=== PATIENT | female | born 1980 | race Asian ===

== ENCOUNTER 2023-02-24 10:29 | Outpatient (REF) | payer MEDICAID, SELFPAY ==
[2023-02-24 12:12] LABS: Hemoglobin 11.3 g/dl (12.0-16.0); Mean Corpuscular HGB Conc 32.3 g/dl (31.0-35.0); Mean Corpuscular Volume 86.6 fL (80.0-98.0); Mean Platelet Volume 11.1 fL (9.4-12.3); Platelet Count 369 X10*3/uL (160-400); Red Blood Count 4.04 X10*6/uL (4.20-5.50); Red Cell Distribution Width 14.2 % (11.0-16.0); White Blood Count 7.6 X10*3/uL (4.8-10.8)
[2023-02-24 12:41] LABS: Alanine Aminotransferase 13 U/L (0-31); Albumin Level 3.9 g/dL (3.5-5.0); Alkaline Phosphatase 61 U/L (39-117); Anion Gap 11 (12-20); Aspartate Amino Transferase 14 U/L (5-31); Bilirubin Total 0.7 mg/dL (0.0-1.0); Blood Urea Nitrogen 12 mg/dL (9-16); C Reactive Protein 0.16 mg/dL (< or = 0.50); Calcium 8.6 mg/dL (8.4-10.2); Carbon Dioxide 26 mmol/L (22-29); Chloride 108 mmol/L (96-108); Estimated Glomerular Filt Rate > 60; Glucose Random 100 mg/dL (60-115); Potassium 4.6 mmol/L (3.3-5.1); Sodium 140 mmol/L (135-145)
[2023-02-25 15:38] LABS: Immunoglobulin A 362 mg/dL (47-310)
[2023-02-25 17:14] LABS: Transglutaminase IgA <1.0 U/mL
[2023-02-26 04:38] LABS: HBS Num1 1.38 mIU/mL (0-7.99); HBsAGNum1 0.33 S/CO (0.00-0.99); Hepatitis B Core Antibody Nonreactive (Nonreactive); Hepatitis B Surface Antigen Negative (Negative); ~HepC Num1 0.14 S/CO (0.00-0.79); ~Hepatitis B Surface Antibody NONREACTIVE (Nonreactive); ~Hepatitis C Antibody Nonreactive (Nonreactive)
== END 2023-02-24 10:30 | disposition home or self-care (01) ==
LOC: HO.LAB 10:29
PROVIDERS: PCP Internal Medicine; Visit Provider Internal Medicine
DX: R10.9 Unspecified abdominal pain (principal); R14.0 Abdominal distension (gaseous); K21.9 Gastro-esophageal reflux disease without esophagitis
CPT/HCPCS: 36415; 80053; 82784; 85027; 86140; 86364; 86704; 86706; 86803; 87340; 99202

== ENCOUNTER 2023-02-26 15:49 | Outpatient (REF) | payer MEDICAID, SELFPAY | END 2023-02-26 15:50 | disposition home or self-care (01) | LOC: HO.LNP 15:49 | PROVIDERS: Visit Provider Internal Medicine | DX: R14.0 Abdominal distension (gaseous) (principal) | CPT/HCPCS: 87338 ==

== ENCOUNTER 2023-03-07 12:49 | Outpatient (REF) | payer MEDICAID, SELFPAY ==
--- NOTE | ~2023-03-07 | US_ITS ---
EXAMINATION: US ABDOMEN COMPLETE CLINICAL INFORMATION: Unspecified abdominal pain. COMPARISON: Ultrasound abdomen complete 04/17/2020. TECHNIQUE: Real-time imaging of the abdominal viscera. FINDINGS: PANCREAS: The head and body appear normal. The tail is obscured by bowel gas. ABDOMINAL AORTA: The proximal, mid, and distal segments are normal in caliber. INFERIOR VENA CAVA: Visualized portions are normal. LIVER: Normal. The liver is normal in size. The liver contour is normal. Parenchymal echogenicity is normal. No focal hepatic lesion. There is no intrahepatic biliary duct dilatation seen. GALLBLADDER: Normal. The gallbladder is physiologically distended without evidence of stones, sludge, polyps, wall thickening or pericholecystic fluid. COMMON BILE DUCT: Normal in caliber measuring 0.3 cm in diameter. RIGHT KIDNEY: Normal. No hydronephrosis. No renal calculi or focal parenchymal lesions. The kidney measures 10.8 cm in maximum dimension. LEFT KIDNEY: Normal. No hydronephrosis. No renal calculi or focal parenchymal lesions. The kidney measures 10.0 cm in maximum dimension. SPLEEN: Normal. The spleen measures 9.7 cm in maximum dimension. FREE FLUID: None. US/US abdomen complete IMPRESSION: Normal abdominal ultrasound.
== END 2023-03-07 12:50 | disposition home or self-care (01) ==
LOC: HO.US 12:49
PROVIDERS: Visit Provider Internal Medicine
DX: R10.9 Unspecified abdominal pain (principal)
CPT/HCPCS: 76700

== ENCOUNTER 2023-04-28 11:08 | Outpatient (AMB) | payer MEDICAID, SELFPAY ==
--- NOTE | 2023-04-28 11:12 | A.OFFVIS_ITS ---
Intake Vital Signs 04/28/23 11:14 Height 5 ft 6 in Weight 143 lb 4.807 oz BMI 23.1 BP 109/76 Blood Pressure Location Lt brachial Position Sitting Pulse 88 Intake Visit Reasons: 2 mnth follow up Intake Note: Carmelo presents in the office as a 2 month follow up. CC: She states that she was taking Duloxetine and she states that she was feeling okay but she started feeling a pain in her upper chest region so she stopped taking it. She stopped Pepcid after 1 month - the first month everything was normal but things were very abnormal. Petroleum Refining Equipment Operator Required: Yes Petroleum Refining Equipment Operator Name: [id number] Allergies Seasonal Allergies Allergy (Mild, Verified 04/28/23 11:16) Unknown HPI HPI Comments History of Present Illness Details This is a 43y.o Tajik speaking female who is here for gastrointestinal issues as below. Reports abdominal bloating and frequent belching after heavy/fatty meals. Sometimes also with regurgitation but no forceful vomiting. Also reports frequent constipation. Has been ongoing for many years. Had previously been taking Famotidine and stool softener for these sx but did not notice much response. Has also tried dietary modifications such as avoiding sugary and fatty foods but felt that energy levels were not as great with this. Describes constipation as passing BMs 4-5 times a week with straining and the stool consistency is hard. Takes NSAIDs (meloxicam, naproxen PRN) for joint pains but does notice it makes the abd discomfort worse. 04/28/23: Seen with the help of an Tajik terminal supervisor. Reports not feeling well. Has similar sx of post prandial bloating and belching. [place] improvement with omeprazole PO in AM however when combined it with famotidine got severe chest pain so discontinued both. Cont to report significant epigastric discomfort and pressure. Additionally, also has constipation but does not report any distinct abd pain with this. Has 2 BMs per week with straining. Labs reviewed. H Pylori positive. [facility] Social History Household Members: Spouse and Family Alcohol intake: never Patient Tobacco Use Status: Never used Tobacco Review of Systems Const All systems reviewed & are unremarkable except as noted in HPI and below Physical Exam Vital Signs: Last Vital Signs Pulse 88 04/28/23 11:14 BP 109/76 04/28/23 11:14 BMI result Body Mass Index 23.1 Gen appear: NAD HEENT: nonicteric, no cervical lymphadenopathy Chest: CTA CVS: Regular S1/S2 Abd: soft, nontender, nondistended, bowel sounds + Ext: no peripheral edema Neuro: A/Ox3, noted to move all extremities spontaneously Psych: interacting appropriately Assessment & Plan Assessment & Plan (1) Bloating: Code(s): R14.0 - Abdominal distension (gaseous) (2) Abdominal pain: Code(s): R10.9 - Unspecified abdominal pain (3) H. pylori infection: Code(s): A04.8 - Other specified bacterial intestinal infections Plan Reviewed that sx most consistent with dyspepsia and first step would be H pylori eradication. Quad therapy will be prescribed. Pt was counseled extensively on how to take the meds and necessary precautions kaylynn with tetracycline was advised to use strict contraception while she is on this. - Start: Omeprazole 40mg BID Tetracycline 500mg 4 times a day (avoid sunburn while taking) Metronidazole 250mg 4 times a day? (avoid all alcohol while taking, can take with food to avoid nausea) Bismuth Subsalicylate 524mg 4 times a day (may turn stools black) - To be taken x 14 days total - Pt is aware to return for NELI in 2-3 weeks after completion of therapy i.e once shes off bismuth and PPIs. - Follow up in office after NELI Medications: New omeprazole 20 mg PO BID 14 days 28 caps 0RF metronidazole 250 mg PO QID 14 days 56 tabs 0RF bismuth subsalicylate 2 tabs PO QID 14 days 112 tabs 0RF tetracycline 500 mg PO QID 14 days 56 caps 0RF Coding Level of Care Code Est Pt Level 4 (83666) Diagnoses Bloating R14.0 Abdominal pain R10.9 H. pylori infection A04.8
[2023-04-28 11:14] VITALS: BP 109/76; PULSE 88; BMI 23.1
== END 2023-04-28 13:15 | disposition home or self-care (01) ==
PROVIDERS: Visit Provider Internal Medicine
DX: R14.0 Abdominal distension (gaseous) (principal); R10.9 Unspecified abdominal pain; A04.8 Other specified bacterial intestinal infections
CPT/HCPCS: 99214

== ENCOUNTER → 2023-04-28 11:08 | Outpatient (BNVA) | payer MEDICAID, SELFPAY | PROVIDERS: Visit Provider Internal Medicine | DX: R14.0 Abdominal distension (gaseous) (principal); R10.9 Unspecified abdominal pain; A04.8 Other specified bacterial intestinal infections | CPT/HCPCS: 99212 ==

== ENCOUNTER → 2023-07-01 12:28 | Outpatient (BNVA) | payer MEDICAID, SELFPAY | PROVIDERS: PCP Internal Medicine; Visit Provider Internal Medicine | DX: Z11.0 Encounter for screening for intestinal infectious diseases (principal) | CPT/HCPCS: 83013; 99211 ==

== ENCOUNTER 2023-07-01 17:54 | Outpatient (REF) | payer MEDICAID, SELFPAY ==
[2023-07-04 15:44] LABS: H Pylori Breath Test Positive (Negative)
== END 2023-07-01 17:55 | disposition home or self-care (01) ==
LOC: HO.LNP 17:54
PROVIDERS: Visit Provider Internal Medicine
DX: A04.8 Other specified bacterial intestinal infections (principal)
CPT/HCPCS: 83013

== ENCOUNTER 2023-07-07 15:10 | Outpatient (AMB) | payer OTHER, SELFPAY ==
--- NOTE | 2023-07-07 15:14 | MHC.OFFVIS ---
Intake Vital Signs 07/07/23 15:17 Height 5 ft 6 in Weight 145 lb 8.081 oz BMI 23.5 BP 107/72 Blood Pressure Location Lt brachial Position Sitting Pulse 87 Intake Visit Reasons: 10 week follow up Intake Note: Carmelo presents in the office as a 10 week follow up. CC: She is here as a follow up H Pylori Breath Test. No concerns today. Machine Burrer Required: Yes Machine Burrer Name: Yemi [id number] Allergies Seasonal Allergies Allergy (Mild, Verified 07/07/23 15:18) Unknown HPI HPI Comments History of Present Illness Details This is a 43y.o Portuguese speaking female who is here for gastrointestinal issues as below. Reports abdominal bloating and frequent belching after heavy/fatty meals. Sometimes also with regurgitation but no forceful vomiting. Also reports frequent constipation. Has been ongoing for many years. Had previously been taking Famotidine and stool softener for these sx but did not notice much response. Has also tried dietary modifications such as avoiding sugary and fatty foods but felt that energy levels were not as great with this. Describes constipation as passing BMs 4-5 times a week with straining and the stool consistency is hard. Takes NSAIDs (meloxicam, naproxen PRN) for joint pains but does notice it makes the abd discomfort worse. 04/28/23: Seen with the help of an [facility]. Reports not feeling well. Has similar sx of post prandial bloating and belching. [place] improvement with omeprazole PO in AM however when combined it with famotidine got severe chest pain so discontinued both. Cont to report significant epigastric discomfort and pressure. Additionally, also has constipation but does not report any distinct abd pain with this. Has 2 BMs per week with straining. Labs reviewed. H Pylori positive. 07/07/23: [facility]. Seen in follow up after H pylori quad therapy. Had a breath test done 07/01/23 which was still positive. Reports taking all 4 meds but does not recall taking any of the med 4 times a day. Reports that may be one of the med she took thrice a day. Did not bring pill boxes for review so unclear which meds were taken in which manner. [facility] Social History Household Members: Spouse and Family Alcohol intake: never Patient Tobacco Use Status: Never used Tobacco Review of Systems Const All systems reviewed & are unremarkable except as noted in HPI and below Physical Exam Vital Signs: Last Vital Signs Pulse 87 07/07/23 15:17 BP 107/72 07/07/23 15:17 BMI result Body Mass Index 23.5 Gen appear: NAD HEENT: nonicteric, no cervical lymphadenopathy Chest: CTA CVS: Regular S1/S2 Abd: soft, nontender, nondistended, bowel sounds + Ext: no peripheral edema Neuro: A/Ox3, noted to move all extremities spontaneously Psych: interacting appropriately Assessment & Plan Assessment & Plan (1) Bloating: Code(s): R14.0 - Abdominal distension (gaseous) (2) Abdominal pain: Code(s): R10.9 - Unspecified abdominal pain (3) H. pylori infection: Code(s): A04.8 - Other specified bacterial intestinal infections Plan Persistent H pylori infection most likely due to nonadherence to medications. Reinforced multiple times to the pt that she will need to take the quad therapy as prescribed for it to be effective. Willing to try this again but was advised that if fails a second time too, will need a different therapy (which has slightly lower eradication rate) since unable to Rx quad therapy a third time. Pt was counseled extensively on how to take the meds and necessary precautions kaylynn with tetracycline was advised to use strict contraception while she is on this. - Prescription sent again for : Omeprazole 40mg BID Tetracycline 500mg 4 times a day (avoid sunburn while taking) Metronidazole 250mg 4 times a day? (avoid all alcohol while taking, can take with food to avoid nausea) Bismuth Subsalicylate 524mg 4 times a day (may turn stools black) - To be taken x 14 days total - Instructions in [place] were also provided (pt's children will be able to interpret this for her) in a handout. - Pt is aware to return for NELI in 2-3 weeks after completion of therapy i.e once shes off bismuth and PPIs. Medications: New metronidazole 250 mg PO QID 14 days 56 tabs 0RF omeprazole 20 mg PO BID 14 days 28 caps 0RF bismuth subsalicylate 2 tabs PO QID 14 days 112 tabs 0RF tetracycline 500 mg PO QID 14 days 56 caps 0RF Patient Instructions: This is to review the results of testing and the instructions for medications again. As discussed, the testing showed presence of H.Pylori which is a bacteria that can cause irritation and changes in the lining of the stomach. In most patients, it is important to treat this as if left untreated there is a small chance of the gastric changes progressing to cancer. This small risk is variable and also depends on other factors such as obesity, diabetes, family history etc. Treatment is through a combination of antibiotics and acid-suppressing medications to be taken for 2 weeks. Please do not start the treatment until you have ALL the following pills: -Omeprazole 40mg 2 times a day -Tetracycline 500mg 4 times a day (avoid sunburn while taking) -Metronidazole 250mg 4 times a day? (this may cause abdominal discomfort and nausea. Avoid all alcohol while taking, can take with food to avoid nausea) -Bismuth Subsalicylate 524mg 4 times a day (may turn stools black). Once the treatment has been completed, we will discuss the next steps, including making sure the bacteria has been eliminated ( test of cure ). If you have any questions, please call the office at [phone]. Sincerely Mare Esquivel MD Gastroenterology [address] [place] [address], [address] [place] [address] Coding Level of Care Code Est Pt Level 4 (15564) Diagnoses Bloating R14.0 Abdominal pain R10.9 H. pylori infection A04.8
[2023-07-07 15:17] VITALS: BP 107/72; PULSE 87; BMI 23.5
== END 2023-07-07 15:50 | disposition home or self-care (01) ==
PROVIDERS: PCP Internal Medicine; Visit Provider Internal Medicine
DX: R14.0 Abdominal distension (gaseous) (principal); R10.9 Unspecified abdominal pain; A04.8 Other specified bacterial intestinal infections
CPT/HCPCS: 99214

== ENCOUNTER → 2023-07-07 15:10 | Outpatient (BNVA) | payer OTHER, SELFPAY | PROVIDERS: PCP Internal Medicine; Visit Provider Internal Medicine | DX: A04.8 Other specified bacterial intestinal infections (principal); R14.0 Abdominal distension (gaseous); R10.9 Unspecified abdominal pain | CPT/HCPCS: 99212 ==

== ENCOUNTER 2024-01-05 15:29 | Outpatient (AMB) | payer MEDICAID, SELFPAY ==
--- NOTE | 2024-01-05 15:32 | A.OFFVIS_ITS ---
Intake Vital Signs 01/05/24 15:34 Height 5 ft 6 in Weight 147 lb 11.355 oz BMI 23.8 BP 113/63 Blood Pressure Location Lt brachial Position Sitting Pulse 74 Intake Visit Reasons: Follow up H pylori Intake Note: Carmelo presents in the office as a follow up H Pylori. CC: She states that she is not sure if she still has it even though she too k the medications for the treatment. She states that she takes iron but it does bother her stomach when she takes it. Client Services Administrator Required: Yes Client Services Administrator Name: [id number] Allergies Seasonal Allergies Allergy (Mild, Verified 01/05/24 15:34) Unknown HPI HPI Comments History of Present Illness Details This is a 43y.o Azeri speaking female who is here for gastrointestinal issues as below. Reports abdominal bloating and frequent belching after heavy/fatty meals. Sometimes also with regurgitation but no forceful vomiting. Also reports frequent constipation. Has been ongoing for many years. Had previously been taking Famotidine and stool softener for these sx but did not notice much response. Has also tried dietary modifications such as avoiding sugary and fatty foods but felt that energy levels were not as great with this. Describes constipation as passing BMs 4-5 times a week with straining and the stool consistency is hard. Takes NSAIDs (meloxicam, naproxen PRN) for joint pains but does notice it makes the abd discomfort worse. 04/28/23: Seen with the help of an Azeri lamp shade sewer. Reports not feeling well. Has similar sx of post prandial bloating and belching. [place] improvement with omeprazole PO in AM however when combined it with famotidine got severe chest pain so discontinued both. Cont to report significant epigastric discomfort and pressure. Additionally, also has constipation but does not report any distinct abd pain with this. Has 2 BMs per week with straining. Labs reviewed. H Pylori positive. 07/07/23: Online maori lamp shade sewer. Seen in follow up after H pylori quad therapy. Had a breath test done 07/01/23 which was still positive. Reports taking all 4 meds but does not recall taking any of the med 4 times a day. Reports that may be one of the med she took thrice a day. Did not bring pill boxes for review so unclear which meds were taken in which manner. 01/05/24: Here for follow up after completing H pylori tx in Nov 2023. Reports good compliance without any missed or skipped doses. Off PPI. Reports no abd discomfort, N,V, bloating. Fasting during without any difficulty. Has not had breath test yet. [facility] Social History Household Members: Spouse and Family Alcohol intake: never Patient Tobacco Use Status: Never used Tobacco Review of Systems Const All systems reviewed & are unremarkable except as noted in HPI and below Physical Exam Vital Signs: Last Vital Signs Pulse 74 01/05/24 15:34 BP 113/63 01/05/24 15:34 BMI result Body Mass Index 23.8 NAD Nonicteric Abd soft, nontender A/Ox3, norm gait Assessment & Plan Assessment & Plan (1) Bloating: Code(s): R14.0 - Abdominal distension (gaseous) (2) Abdominal pain: Code(s): R10.9 - Unspecified abdominal pain (3) H. pylori infection: Code(s): A04.8 - Other specified bacterial intestinal infections Plan Reports resolution of dyspepsic sx since completing H Pylori therapy however NELI pending. Pt unable to do breath test today as fasting and cant drink the liquid for testing. Also reports constipation with iron pills. Plan: - Danette NELI in 2 weeks after the month of - Follow up with me in 3 weeks for results - Senna Rxed PRN for constipation Medications: New sennosides (senna) 17.2 mg (2 x 8.6 mg) PO DAILY PRN 90 tabs 0RF constipation Coding Level of Care Code Est Pt Level 3 (25643) Diagnoses Bloating R14.0 Abdominal pain R10.9 H. pylori infection A04.8
[2024-01-05 15:34] VITALS: BP 113/63; PULSE 74; BMI 23.8
== END 2024-01-05 16:12 | disposition home or self-care (01) ==
PROVIDERS: Visit Provider Internal Medicine
DX: R14.0 Abdominal distension (gaseous) (principal); R10.9 Unspecified abdominal pain; A04.8 Other specified bacterial intestinal infections
CPT/HCPCS: 99213

== ENCOUNTER → 2024-01-05 15:29 | Outpatient (BNVA) | payer MEDICAID, SELFPAY | PROVIDERS: Visit Provider Internal Medicine | DX: R14.0 Abdominal distension (gaseous) (principal); R10.9 Unspecified abdominal pain; A04.8 Other specified bacterial intestinal infections; K59.03 Drug induced constipation; T45.4X5A Adverse effect of iron and its compounds, initial encounter | CPT/HCPCS: 99212 ==

== ENCOUNTER 2024-01-20 12:01 | Outpatient (REF) | payer MEDICAID, SELFPAY ==
[2024-01-22 10:30] LABS: H Pylori Breath Test Negative (Negative)
== END 2024-01-20 12:02 | disposition home or self-care (01) ==
LOC: HO.LNP 12:01
PROVIDERS: Visit Provider Internal Medicine
DX: Z11.2 Encounter for screening for other bacterial diseases (principal)
CPT/HCPCS: 83013; 99211

== ENCOUNTER 2024-01-20 12:01 | Outpatient (AMB) | payer MEDICAID, SELFPAY ==
--- NOTE | 2024-01-20 13:00 | AM.OFFVISNUR ---
Intake Vital Signs 01/20/24 13:02 Height 5 ft 6 in Weight 147 lb BMI 23.7 Intake Visit Reasons: H pylori breath test Intake Note: Patient presents for collection of H Pylori breath test. Patient has been fasting for 1 hour (nothing to eat, drink, no chewing gum or smoking) has not taken any antacid medication for at least 2 weeks and has no allergies to artificial sweeteners.?? Icd 9 Coder Required: Yes Allergies Seasonal Allergies Allergy (Mild, Verified 01/20/24 13:01) Unknown Coding Level of Care Code Est Pt Level 1 (77870) Diagnoses H. pylori infection A04.8 Assessment & Plan Assessment & Plan (1) H. pylori infection: Code(s): A04.8 - Other specified bacterial intestinal infections Category: Medical Plan Patient presents for collection of H Pylori breath test. Patient has been fasting for 1 hour (nothing to eat, drink, no chewing gum or smoking) has not taken any antacid medication for at least 2 weeks and has no allergies to artificial sweeteners.???This test checks for an overgrowth of bacteria in your stomach. We all have bacteria but some may have more than others. It is treatable. if the test comes back negative there is nothing else to do. If the test result is positive we will treat you with 2 antibiotics and a medication to decrease the acid in your stomach (PPI) for 2 weeks. Two weeks after you have completed the treatment we will retest you to make sure the overgrowth has resolved. Patient Instructions: Process for specimen collection and reason for testing was explained to the patient. Specimen collection. Patient instructed to take a deep breath and then exhale into the blue bag, filling it up as much as possible. Patient instructed to drink a mixture of water and the artificial sweetener with a straw. A 15 minute wait period was observed. Patient instructed to take a deep breath and then exhale into the pink bag, filling it up as much as possible.??
[2024-01-20 13:02] VITALS: BMI 23.7
== END 2024-01-20 13:35 | disposition home or self-care (01) ==
PROVIDERS: Visit Provider Internal Medicine
DX: A04.8 Other specified bacterial intestinal infections (principal)

== ENCOUNTER 2024-01-26 12:01 | Outpatient (AMB) | payer MEDICAID, SELFPAY ==
--- NOTE | 2024-01-26 12:16 | A.OFFVIS_ITS ---
Vital Signs 01/26/24 12:28 Height 5 ft 6 in Weight 146 lb 15.715 oz BMI 23.7 BP 110/69 Blood Pressure Location Lt brachial Position Sitting Pulse 72 Intake Visit Reasons: Follow up 3 weeks Intake Note: Patient is seen in office for 3 weeks follow up visit, following on meds. Pt c/o: no changes since last visit, continued constipation, pharmacy did not filled meds Rx on last visit Etl Analyst Developer Required: Yes Etl Analyst Developer Language: Uzbek Etl Analyst Developer Name: Stone [id number]) Information Interpreted: non-clinical & clinical Accompanied by: Self / Same As Patient Allergies Seasonal Allergies Allergy (Mild, Verified 01/26/24 12:27) Unknown HPI Comments Details: This is a 43y.o Uzbek speaking female who is here for gastrointestinal issues as below. Reports abdominal bloating and frequent belching after heavy/fatty meals. Sometimes also with regurgitation but no forceful vomiting. Also reports frequent constipation. Has been ongoing for many years. Had previously been taking Famotidine and stool softener for these sx but did not notice much r esponse. Has also tried dietary modifications such as avoiding sugary and fatty foods but felt that energy levels were not as great with this. Describes constipation as passing BMs 4-5 times a week with straining and the stool consistency is hard. Takes NSAIDs (meloxicam, naproxen PRN) for joint pains but does notice it makes the abd discomfort worse. 04/28/23: Seen with the help of an Uzbek certified court/medical interpreter. Reports not feeling well. Has similar sx of post prandial bloating and belching. [place] improvement with omeprazole PO in AM however when combined it with fam otidine got severe chest pain so discontinued both. Cont to report significant epigastric discomfort and pressure. Additionally, also has constipation but does not report any distinct abd pain with this. Has 2 BMs per week with straining. Labs reviewed. H Pylori positive. 07/07/23: Online hebrew certified court/medical interpreter. Seen in follow up after H pylori quad therapy. Had a breath test done 07/01/23 which was still positive. Reports taking all 4 meds but does not recall taking any of the med 4 times a day. Reports that may be one of the med she took thrice a day. Did not bring pill boxes for review so unclear which meds were taken in which manner. 01/05/24: Here for follow up after completing H pylori tx in Nov 2023. Reports good compliance without any missed or skipped doses. Off PPI. Reports no abd discomfort, N,V, bloating. Fasting during ada without any difficulty. Has not had breath test yet. 01/26/24: H pylori testing completed - results negative, which is excellent news. Reports intermittent constipation - was not able to get a hold of senna from pharmacy, resent. [facility] Social History Household Members: Spouse and Family Alcohol intake: never Patient Tobacco Use Status: Never used Tobacco Review of Systems Const All systems reviewed & are unremarkable except as noted in HPI and below Physical Exam Vital Signs: Last Vital Signs Pulse 72 01/26/24 12:28 BP 110/69 01/26/24 12:28 BMI result Body Mass Index 23.7 NAD Nonicteric Abd soft, nontender A/Ox3, norm gait Assessment & Plan Assessment & Plan (1) Bloating: Code(s): R14.0 - Abdominal distension (gaseous) Category: Medical (2) Abdominal pain: Code(s): R10.9 - Unspecified abdominal pain Category: Medical (3) H. pylori infection: Code(s): A04.8 - Other specified bacterial intestinal infections Category: Medical (4) Colon cancer screening: Code(s): Z12.11 - Encounter for screening for malignant neoplasm of colon Category: Medical Plan H Pylori inf successfully eradicated. Advised that if only has occ heartburn, pepcid may be more effective on PRN basis as opposed to PRN PPIs. Will resend senna for constipation from iron supplements. Pt also encouraged to increase fiber intake. Follow up next year for screening colo. PRN in the meantime. Medications: Changed From famotidine 20 mg PO BID To famotidine 20 mg PO BEDTIME 90 tabs 0RF dyspepsia 90 days Refilled sennosides (senna) 17.2 mg (2 x 8.6 mg) PO DAILY PRN 90 tabs 0RF constipation 90 days Coding Level of Care Code Est Pt Level 3 (20433) Diagnoses Bloating R14.0 Abdominal pain R10.9 H. pylori infection A04.8 Colon cancer screening Z12.11
[2024-01-26 12:28] VITALS: BP 110/69; PULSE 72; BMI 23.7
== END 2024-01-26 12:35 | disposition home or self-care (01) ==
LOC: HO.HGI 12:01
PROVIDERS: Referring Provider Internal Medicine; Visit Provider Internal Medicine
DX: R14.0 Abdominal distension (gaseous) (principal); R10.9 Unspecified abdominal pain; A04.8 Other specified bacterial intestinal infections; Z12.11 Encounter for screening for malignant neoplasm of colon
CPT/HCPCS: 99213

== ENCOUNTER → 2024-01-26 12:01 | Outpatient (BNVA) | payer MEDICAID, SELFPAY | PROVIDERS: Visit Provider Internal Medicine | DX: Z12.11 Encounter for screening for malignant neoplasm of colon (principal); R14.0 Abdominal distension (gaseous); R10.9 Unspecified abdominal pain; A04.8 Other specified bacterial intestinal infections | CPT/HCPCS: 99212 ==

== ENCOUNTER 2025-02-09 12:51 | Outpatient (AMB) | payer MEDICAID, SELFPAY ==
--- NOTE | 2025-02-09 12:53 | MHC.OFFVIS ---
Vital Signs 02/09/25 13:00 Weight 165 lb 5.547 oz BP 105/56 L Blood Pressure Location Lt brachial Position Sitting Pulse 8 L Intake Visit Reasons: Discuss Colonoscopy r/s from 01/19/25 Intake Note: Carmelo presents in the office as a follow up to discuss having a Colonoscopy. CC: States that she stopped all of her medications - she denies taking all the medications on her list. She states that 4-5 months ago she had a pain in her tongue. She was told she had to make an appt - it is every time she eats. Not sure what it is from. Outside Machinist Helper Required: Yes Outside Machinist Helper Name: Elvis Allergies Seasonal Allergies Allergy (Mild, Verified 02/09/25 13:03) Unknown HPI Comments Details: This is a 43y.o Armenian speaking female who is here for gastrointestinal issues as below. Reports abdominal bloating and frequent belching after heavy/fatty meals. Sometimes also with regurgitation but no forceful vomiting. Also reports frequent constipation. Has been ongoing for many years. Had previously been taking Famotidine and stool softener for these sx but did not notice much response. Has also tried dietary modifications such as avoiding sugary and fatty foods but felt that energy levels were not as great with this. Describes constipation as passing BMs 4-5 times a week with straining and the stool consistency is hard. Takes NSAIDs (meloxicam, naproxen PRN) for joint pains but does notice it makes the abd discomfort worse. 04/28/23: Seen with the help of an Armenian vice president marketing & development. Reports not feeling well. Has similar sx of post prandial bloating and belching. [place] improvement with omeprazole PO in AM however when combined it with famotidine got severe chest pain so discontinued both. Cont to report significant epigastric discomfort and pressure. Additionally, also has constipation but does not report any distinct abd pain with this. Has 2 BMs per week with straining. Labs reviewed. H Pylori positive. 07/07/23: Online sami vice president marketing & development. Seen in follow up after H pylori quad therapy. Had a breath test done 07/01/23 which was still positive. Reports taking all 4 meds but does not recall taking any of the med 4 times a day. Reports that may be one of the med she took thrice a day. Did not bring pill boxes for review so unclear which meds were taken in which manner. 4/1/24: Here for follow up after completing H pylori tx in Nov 2023. Reports good compliance without any missed or skipped doses. Off PPI. Reports no abd discomfort, N,V, bloating. Fasting during Ramadan without any difficulty. Has not had breath test yet. 01/26/24: H pylori testing completed - results negative, which is excellent news. Reports intermittent constipation - was not able to get a hold of senna from pharmacy, resent. 02/09/25: Here for 1y follow up. Seen with online sami vice president marketing & development. She is due for a colonoscopy this year. In addition, also endorses intermittent nausea with change in taste and sensation of food getting stuck. Also reports burning pain on her tongue after eating. Has seen a dentist for this who said this is from her stomach issues . Has been taking Pepcid with good results. [facility] Social History Household Members: Spouse and Family Alcohol intake: never Patient Tobacco Use Status: Never used Tobacco Review of Systems Const All systems reviewed & are unremarkable except as noted in HPI and below Physical Exam Vital Signs: Last Vital Signs Pulse 8 L 02/09/25 13:00 BP 105/56 L 02/09/25 13:00 No apparent distress Nonicteric, no exudates noted in oropharynx Abdomen soft, nondistended Alert and oriented x3, normal gait Assessment & Plan Assessment & Plan (1) Abdominal pain: Code(s): R10.9 - Unspecified abdominal pain Category: Medical (2) Bloating: Code(s): R14.0 - Abdominal distension (gaseous) Category: Medical (3) Colon cancer screening: Code(s): Z12.11 - Encounter for screening for malignant neoplasm of colon Category: Medical Plan Discussed with the patient that symptoms likely secondary to reflux, specially as there triggered by certain food and resolve with Pepcid. Possibly has some component of ineffective motility due to reflux versus esophagitis. We will set her up for an upper endoscopy for further evaluation. Since she is also due for colorectal cancer screening, this will scheduled at the same time. Plan: -EGD and colonoscopy to be booked -PEG prep given and instructions reviewed with the help of Armenian vice president marketing & development. A handout an Armenian was also provided -a handout on dietary triggers to avoid for GERD was also provided an Armenian Follow-up after endoscopy Medications: New peg 3350-electrolytes 236-22.74-6.74 -5.86 gram (Golytely) as per split prep instructions, until fecal effluent is clear 240 mL PO Q10M 4,000 mL 0RF colonoscopy Coding Level of Care Code Est Pt Level 4 (31992) Diagnoses Abdominal pain R10.9 Bloating R14.0 Colon cancer screening Z12.11
[2025-02-09 13:00] VITALS: BP 105/56; PULSE 8
--- OUTSIDE RECORDS SUMMARY | 2025-02-09 13:55 | XMS_ITS | Encounter Summary ---
Author Organization [facility] Address [address] [place] [address] Care Team Providers Care Casino Cage Supervisor Name Role Phone Felix Rae RESEARCH FOOD TECHNOLOGIST-C Primary Care Provider [phone] Encounter Details Date Type Department Care Team ([facility] st Contact Info) Description 03/23/2021 Case Management Visit [facility] [address] [place] [address] Roxanna Gutierrez, Community Health Worker [address] [place] [id number] Social History Tobacco Use Types Packs/Day Years Used Date Smoking Tobacco: Never Smokeless Tobacco: Never Alcohol Use Standard Drinks/Week Comments No 0 (1 standard drink = 0.6 oz pur e alcohol) Social Connections Answer Date Recorded Social Connections and Isolation 0 05/24/2019 Financial Resource Strain Answer Date R ecorded Financial Resource Strain 0 2018 Stress Answer Date Recorded Stress 0 05/24/2019 Physical Activity Answer Date Recorded Physical Activity 0 05/24/2019 Food Insecurity Answer Date Recorded Food 0 05/24/2019 Transportation Needs Answer Date Record ed Transportation 0 05/24/2019 Housing Stability Answer Date Recorded Housing 0 05/24/2019 Safety and Environment Answer Date Benitez rded Safety 1 05/02/2020 Utilities Answer Date Recorded Utilities 0 05/24/2019 Employment Answer Date Recorded Employment 0 05/24/2019 Comments No Sex and Gender Information Value Date Recorded Sex Assigned at Female 06/19/2017 6:49 AM PDT Legal Sex Female 11:35 AM PDT Gender Identity Female 06/19/2017 6:49 AM PDT Sexual Orientation Straight 06/19/2017 6: 49 AM PDT documented as of this encounter Plan of Treatment Not on file documented as of this encounter Visit Diagnoses Not on filedocumented in this encounter Additional Health Concerns Assessment Noted Time PHQ-9 Depression Total Score: 7 01/06/20 21 10:16 AM PDT documented as of this encounter Care Teams Casino Cage Supervisor Relationship Specialty Start Date End Date Felix Rae FNP-C [address] [place] [address] PCP - General Internal Medicine 07/17/23 documented as of this encounter
--- OUTSIDE RECORDS SUMMARY | 2025-02-09 13:55 | XMS_ITS | Clinical Summary ---
Author Organization [facility] Address [address] [place] [address] Care Team Providers Care Dance Teacher Name Role Phone Felix Rae COUNTER MAKER-C Primary Care Provider [phone] Source Comments PLEASE NOTE, if this patient is a minor, it may be UNLAWFUL to discuss sensitive information that is contained in these records (such as FAMILY PLANNING, MENTAL HEALTH or SUBSTANCE ABUSE) with the minor patient's parent or other person without the patient's specific authorization.[facility] Allergies Active Allergy Reactions Criticality Noted Date Comments Seasonal Allergies Low 03/26/2024 Medications miscellaneous medical supply miscIndications: Localized swelling of both lower legs by miscellaneous route once daily Dx: bilateral low leg swelling Supply: 1 pair of compression stockings 15-20 mm Hg HAIDER: 99 2 Each 05/08/20 22 Active polyethylene glycol 3350 17 gram packetIndication s:Constipation, unspecified constipation type Take 17 g by mouth once daily 30 Each 5 07/02/20 22 Active simethicone (MYLICON) 80 mg chewable tabletIndication s:Bloating symptom Place 1 Tablet into mouth, chew and swallow 3 (three) times daily with meals 90 Tablet 5 07/02/20 22 Active naproxen (NAPROSYN) 125 mg/5 mL suspension TAKE 10-20ML BY MOUTH TWICE DAILY NEEDED FOR PAIN Authorized by: CARMELITA HAN 12/06/19 23 Active diclofenac sodium (VOLTAREN) 1 % gelIndications:L umbar radiculopathy,Ch ronic neck pain Apply topically 2 (two) times daily Apply topically 2 (two) times daily 100 g 3 01/02/20 23 Active loratadine (CLARITIN) 10 mg tabletIndication s:Seasonal allergic rhinitis, unspecified trigger TAKE 1 TABLET BY MOUTH ONCE DAILY NEEDED FOR ALLERGIES 90 Tablet 1 01/02/20 23 Active famotidine (PEPCID) 20 mg tabletIndication s:Gastroesophage al reflux disease, unspecified whether esophagitis present TAKE 1 TABLET BY MOUTH TWICE A DAY 180 Tablet 1 09/01/20 23 Active melatonin 3 mg tabletIndication s:Acute insomnia TAKE 1 TABLET BY MOUTH NIGHTLY AT BEDTIME NEEDED FOR SLEEP 90 Tablet 1 09/09/20 23 Active ibuprofen 600 mg tabletIndication s:Adenopathy Take 1 Tablet by mouth 3 (three) times daily as needed for pain 30 Tablet 03/31/20 24 Active ferrous sulfate (SLOW RELEASE IRON) 142 mg (45 mg iron) tabletIndication s:Iron deficiency anemia secondary to inadequate dietary iron intake Take 1 Tablet by mouth once daily 90 Tablet 10/08/19 25 Active Active Problems Problem Noted Date Diagnosed Date Abnormal uterine bleeding 10/23/2023 Assessment & Plan (10/23/2023 3:02 PM EST): - Rx sent for Progesterone Only Pill - Friday start - Follow-up in 2 months Iron deficiency anemia 10/23/2023 Assessment & Plan (10/23/2023 3:09 PM EST): -Continue Iron Vaginal discharge 08/11/2023 Assessment & Plan (08/11/2023 1:36 PM EST): - (p) [facility] collected Chronic pelvic pain in female 08/11/2023 Assessment & Plan (08/11/2023 1:37 PM EST): - (p) Pelvic ultrasound - (p) UA with reflex to culture - Ibuprofen 600 mg q hrs PRN History of ovarian cyst 08/11/2023 Assessment & Plan (08/11/2023 1:37 PM EST): - (p) Pelvic ultrasound - Follow-up to review results H. pylori infection 07/28/2023 Overview (07/28/2023): 07/08/[address] Esquivel at [facility]. She was prescreibed omeprazole 40 mg BID, tetracycline 500 mg QID, metronidazole 250 mg QID and bismuth subsalicylate 524 mg QID. Non-[place] Islander speaking patient 07/31/2022 Vertigo 12/11/2021 Encounter for gynecological examination with Papanicolaou smear of cervix 06/12/2021 Overview (06/14/2021): PAP DONE 06/12/21 Negative for intraepithelial lesion or malignancy. HPV Negative. Chronic post-traumatic stress disorder 1 Language barrier 11/16/2020 Throat pain 09/19/2020 Lumbar radiculopathy 09/23/2019 Bilateral carpal tunnel syndrome 11/03/2018 Chronic midline thoracic back pain 11/03/2018 Pap smear for cervical cancer screening 11/01/19 17 Overview (11/08/2016): 10/28/16 chlamydia Negative, N.gonorrhoeae negative Chlamydia 10/31/16: negative for squamous intraepithelial lesion and malignancy. Constipation 04/16/2016 Kidney stones 02/14/2016 Depression 02/14/2016 Anxiety 02/14/2016 Back pain 02/14/2016 Immunizations Immunization Administration Dates Next Due Flu, Cell Culture based, Pre servative Free, 6m+, Flucelvax 07/05/2020 Flu, Preservative Free 07/20/2019,07/08/2018 Hep B, Adult/Adol (ENERGIX/RECOMBIVAX) 7,06/13/2016,03/29/2016 INFLUENZA, SEASONAL, INJECTA BLE, PRESERVATIVE FREE 06/13/2016 Influenza, Intradermal, Quad rivalent, Preservative Free 08/07/2017 MMR (MMR II/Priorix) 03/29/2016,02/14/2016 TDAP 09/05/2017,02/14/2016 Td (adult), 5 Lf tetanus tox oid, preservative free 03/29/2016 Social History Tobacco Use Types Packs/Day Years Used Date Smoking Tobacco: Never Smokeless Tobacco: Never Tobacco Cessation:Counseling Given: Not Answered Alcohol Use Standard Drinks/Week Comments No 0 (1 standard drink = 0.6 oz pur e alcohol) Social Connections Answer Date Recorded Connectedness 0 07/31/2022 Financial Resource Strain Answer Date R ecorded Financial Resource Strain 0 2021 Stress Answer Date Recorded Stress 0 07/31/2022 Physical Activity Answer Date Recorded Physical Activity 0 05/24/2019 Food Insecurity Answer Date Recorded Food 0 07/31/2022 Transportation Needs Answer Date Record ed Transportation 0 07/31/2022 Housing Stability Answer Date Recorded Housing 0 07/31/2022 Safety and Environment Answer Date Benitez rded Safety 1 10/17/2023 Utilities Answer Date Recorded Utilities 0 07/31/2022 Employment Answer Date Recorded Stress 0 12/24/2021 Comments No Sex and Gender Information Value Date Recorded Sex Assigned at Female 06/19/2017 6:49 AM PDT Legal Sex Female 11:35 AM PDT Gender Identity Female 06/19/2017 6:49 AM PDT Sexual Orientation Straight 06/19/2017 6: 49 AM PDT Last Filed Vital Signs Vital Sign Reading Time Taken Comments Blood Pressure 104/70 10/07/2024 3:39 PM EST Pulse 74 10/07/2024 3:39 PM EST Temperature 36.9 ??C (98.4 ??F) 10/07/2024 3:39 PM ES T Respiratory Rate 15 10/07/2024 3:39 PM EST Oxygen Saturation 100% 09/13/2024 1:10 PM EST Inhaled Oxygen Concentration - - Weight 73.9 kg (163 lb) 10/07/2024 3:39 PM EST Height 154.9 cm (5' 1 ) 10/07/2024 3:39 PM EST Body Mass Index 30.8 10/07/2024 3:39 PM EST Plan of Treatment Health Maintenance Due Date Last Done Comments Anxiety Screening 1979 12/30/2022 Dental Perio Charting 1979 Dental Prophy 1979 HPV Screening 1980 Annual Preventive Care Visit 01/02/2024 01/01/2023, 08/13/2021, 06/19/2017, Additional history exists CT Colonography 01/31/2024 Colonoscopy 01/31/2024 Colorectal Cancer Screening 01/31/2024 FIT/gFOBT 01/31/2024 Fecal DNA 01/31/2024 Flexible Sigmoidoscopy 01/31/2024 Pap Smear 06/11/2024 06/11/2021, 10/24/2016 Relationship Safety Screening/Counseling 10/17/2024 10/17/2023, 07/31/2022, 12/11/2021, Additional history exists Depression Monitoring 01/05/2025 10/07/2024 , 03/25/2024, 10/17/2023, Additional history exists Dental BW 03/28/2025 03/26/2024 Tobacco Screening 03/31/2025 03/31/2024, , 10/17/2023 Imm-Influenza (#1) 2025 07/05/2020, 1 , 07/08/2018, Additional history exists Postponed from 06/06/2024 (Patient postponement) [id number] () 04/08/2025 Postponed from 06/06/2024 (Patient postponement) Dental Examination 06/11/2025 06/09/2024 Hypertension Screening (#1) 10/07/2025 Breast Cancer Screening (Mammogram) 10/15/2025 10/15/2024, 09/17/2021 Cervical Cancer Screening 06/12/2026 Pap + HPV 06/12/2026 06/12/2021, 06/11/2021 Diabetes Screening 10/17/2026 10/17/2023, 0 10/17/2023, 08/06/2022, Additional history exists Lipid Screening 10/17/2026 10/17/2023, 1110/2021, 08/13/2021, Additional history exists Imm-DTaP/Tdap/Td (4 - Td or Tdap) 09/05/2027 09/05/2017, 03/29/2016, 02/14/2016 Dental FMX/Pano 03/28/2029 03/26/2024 HIV Screening Completed 02/14/2016 Imm-Hepatitis B Completed 12/31/2016, 05/2016, 03/29/2016 Hepatitis C Screening Completed 05/08/2020 Alcohol and Drug Screen Completed 10/07/19, 10/17/2023, 07/17/2023, Additional history exists Cervical Ablation/Cold-Knife Conization Discontinued Cervical Cryotherapy Discontinued Colposcopy Discontinued Endometrial Biopsy Discontinued Excision/Leep Discontinued HPV Genotyping Discontinued Vaginal Pap Discontinued Vulvoscopy Discontinued Procedures Procedure Name Priority Date/Time Associated Diagnosis Comments COMP ORAL EVALUATION - NEW/ESTABLISHED PATIENT Routine 06/09/2024 4:20 PM EDT Chronic gingivitis, plaque induced Encounter for dental examination and cleaning with abnormal findings INTRAORAL - COMP SERIES OF RADIOGRAPHIC IMAGES Routine 03/26/2024 4:20 PM EDT Retained tooth root Caries Encounter for dental examination HEMOGLOBIN GLYCOSYLATED A1C Routine 10/17/2023 3:24 PM EST Routine general medical examination at a health care facility LIPID PANEL Routine 10/17/2023 3:24 PM EST Routine general medical examination at a health care facility REFERRAL FOR MAMMOGRAM Routine 09/17/2021 3:00 AM EST Encounter for screening mammogram for malignant neoplasm of breast THINPREP PAP & HPV MRNA E6/E7 RFLX HPV 16,18/[address]/NG Routine 06/11/2021 8:00 PM EDT Encounter for gynecological examination with Papanicolaou smear of cervix HEPATITIS C ANTIBODY Routine 05/08/2020 11:15 AM EDT Encounter for hepatitis C screening test for low risk patient ANTIBODY HIV-1&HIV-2 SINGLE RESULT Routine 02/14/2016 2:30 PM EDT Refugee health examination from Last 3 Months or Most Recently Relevant to Health Maintenance Results * HEMOGLOBIN GLYCOSYLATED A1C (10/17/2023 3:24 PM EST) HEMOGLOBIN A1C 5.1 <5.7 % of total Hgb [facility] Comment: For the purpose of screening for the presence of diabetes: <5.7% ? Consistent with the absence of diabetes 5.7-6.4% ?Consistent with increased risk for diabetes ?(prediabetes) > or =6.5% ??Consistent with diabetes This assay result is consistent with a decreased risk of diabetes. Currently, no consensus exists regarding use of hemoglobin A1c for diagnosis of diabetes in children. According to [place] Diabetes Association (ADA) guidelines, hemoglobin A1c <7.0% represents optimal control in non- diabetic patients. Different metrics may apply to specific patient populations. Standards of Medical Care in Diabetes(ADA). ?? Blood Blood / Unknown 10/17/2023 3 :24 PM EST 10/17/2023 3:24 PM EST Felix Rae COUNTER MAKER-C LAB - BLOOD DRAW Brannon mancuso - Final [facility] [address] [address], [facility] [address] [address] * (ABNORMAL) LIPID PANEL (10/17/2023 3:24 PM EST) CHOLESTEROL, TOTAL 131 <200 mg/dL [facility] HDL CHOLESTEROL 48(L) > OR = 50 mg/dL [facility] 60 <150 mg/dL [facility] LDL-CHOLESTEROL 69 99 mg/dL (calc) [facility] Comment: Reference range: <100 Desirable range <100 mg/dL for primary prevention; ?? <70 mg/dL for patients with CHD or diabetic patients with > or = 2 CHD risk factors. LDL-C is now calculated using the Aníbal-Montero calculation, which is a validated novel method providing better accuracy than the Friedewald equation in the estimation of LDL-C. Aníbal GRAHAM et al. PARVEZ. 2013;310(19): 4686-3509 (http://education.AboutOne.Certeon/faq/GAI264) CHOL/HDLC RATIO 2.7 <5.0 (calc) [facility] NON-HDL CHOLESTEROL 83 <130 mg/dL (calc) [facility] Comment: For patients with diabetes plus 1 major ASCVD risk factor, treating to a non-HDL-C goal of <100 mg/dL (LDL-C of <70 mg/dL) is considered a therapeutic option. Blood Blood / Unknown 10/17/2023 3 :24 PM EST 10/17/2023 3:24 PM EST Felix Rae COUNTER MAKER-C LAB - BLOOD DRAW Final Re sult [facility] [address] [address], [facility] [address] [address] * REFERRAL FOR MAMMOGRAM (09/17/2021 3:00 AM EST) 09/17/2021 3:00 AM EST Dionna Alanis COUNTER MAKER IMG RFL MAMMO Edited Resu lt - Final * THINPREP PAP & HPV MRNA E6/E7 RFLX HPV 16,18/[address]/NG (06/11/2021 8:00 PM EDT) CLINICAL INFORMATION See Note [facility] Comment:ROUTINE EXAM LMP See Note [facility] Comment:[id number] PREV. PAP See Note [facility] Comment:NONE GIVEN PREV. BX [facility] SOURCE See Note [facility] Comment:Cervix STATEMENT OF ADEQUACY See Note [facility] Comment: Satisfactory for evaluation. Endocervical/transformation zone component absent. INTERPRETATION/RESU LT See Note [facility] Comment:Negative for intraep ithelial lesion or malignancy. C.O.D. CLERK See Note [facility] Row [place] Comment: RMM, CT(ASCP) CT screening location: [address] ??[address] COMMENT [facility] HPV MRNA E6/E7 Not Detected Not Detected [facility] Comment: Methodology: Underwriter Mortgage Loan-Mediated Amplification This assay detects E6/E7 viral messenger RNA (mRNA) from 14 high-risk HPV types (16,18,31,33,35,39,45,51,52,56,58,59,66,68). The analytical performance characteristics of this assay have been determined by [employer]. The modifications have not been cleared or approved by the FDA. This assay has been validated pursuant to the CLIA regulations and is used for clinical purposes. For additional information, please refer to http://education.Fixetude/faq/SIM239j8 (This link if provided for information/ educational purposes only.) CHLAMYDIA TRACHOMATIS RNA, TMA NOT DETECTED NOT DETECTED [facility] NEISSERIA GONORRHOEAE RNA, TMA NOT DETECTED NOT DETECTED [facility] COMMENT [facility] CYTOLOGY Cervix uteri structure / Unknown 06/11/2021 8:00 PM EDT 06/13/2021 6:50 AM EDT Narrative [facility] - 06/14/2021 2:09 AM EDT EXPLANATORY NOTE: The Pap is a screening test for cervical cancer. It is not a diagnostic test and is subject to false negative and false positive results. It is most reliable when a satisfactory sample, regularly obtained, is submitted with relevant clinical findings and history, and when the Pap result is evaluated along with historic and current clinical information. The analytical performance characteristics of this assay, when used to test SurePath(TM) specimens have been determined by [employer]. The modifications have not been cleared or approved by the FDA. This assay has been validated pursuant to the CLIA regulations and is used for clinical purposes. For additional information, please refer to https://education.Fixetude/faq/WJA974 (This link is being provided for information/ educational purposes only.) Dionna KENT LAB - NO BLOOD DRAW Final R esult [facility] [place] [address] [address], [facility] [address] [address] * HEPATITIS C ANTIBODY (05/08/2020 11:15 AM EDT) HEPATITIS C VIRUS SCREEN NEGATIVE NEGATIVE [facility] Blood specimen (specimen) Blood / Unknown 05/08/2020 11:15 AM EDT 05/08/2020 9:18 PM EDT [facility] - 05/08/2020 11:30 PM EDT [email or web address], [place] [address] Finishing Operator - Lissy Christian MD PT ID [id number] ORD# [id number] He Nguyen NP LAB - BLOOD DRAW Edited Result - Final Performing Organization Address [facility]/ZIP Co de Phone Number [facility] [address] [place] [address], * HIV-1 & HIV-2 ANTIBODIES (02/14/2016 2:30 PM EDT) [place] [facility] HIV 1 AND 2 ANTIBODY SCREEN NEGATIVE NEGATIVE [facility] Comment: Effective 06/13/15, [employer] has replaced the HIV screening test with a 4th generation HIV Ag/Ab Combo assay. This assay allows for the simultaneous qualitative detection of HIV p24 antigen and antibodies to HIV type 1 (including group O) and type 2. The assay is intended to be used as an aid in the diagnosis of HIV infection in pediatric and adult populations, including women. ??The 4th generation assay allows for earlier detection of HIV infection by detecting the presence of the HIV-1 p24 antigen as well as the traditional antibodies. ??Use of a 4th generation assay is the current CDC recommendation for HIV screening. Blood specimen (specimen) Blood / Unknown 02/14/2016 2:30 PM EDT 02/14/2016 6:59 PM EDT Narrative [facility] - 02/14/2016 9:12 PM EDT [employer] [address] [place] [address] PT ID [id number] ORD# [id number] Darshana Newmanchepe COUNTER MAKER LAB - BLOOD DRAW Edited Resu lt - Final Performing Organization Address City/[facility]/ZIP Co de Phone Number [facility] [address] [place] [address], from Last 3 Months or Most Recently Relevant to Health Maintenance Insurance [facility] [address] [place] Care Teams Dance Teacher Relationship Specialty Start Date End Date Felix Rae FNP-C [address] [place] [address] PCP - General Internal Medicine 07/17/23
== END 2025-02-09 13:56 | disposition home or self-care (01) ==
LOC: HO.HGI 12:52
PROVIDERS: PCP Nurse Practitioner Family; Visit Provider Internal Medicine
DX: Z01.818 Encounter for other preprocedural examination (principal); Z12.11 Encounter for screening for malignant neoplasm of colon; R10.9 Unspecified abdominal pain; R14.0 Abdominal distension (gaseous)
CPT/HCPCS: 99213

== ENCOUNTER → 2025-02-09 12:51 | Outpatient (BNVA) | payer MEDICAID, SELFPAY | PROVIDERS: PCP Nurse Practitioner Family; Visit Provider Internal Medicine | DX: Z12.11 Encounter for screening for malignant neoplasm of colon (principal); R10.9 Unspecified abdominal pain; R14.0 Abdominal distension (gaseous) | CPT/HCPCS: 99212 ==